=== PATIENT | female | born 1935 | race Caucasian/White ===

== ENCOUNTER 2016-11-12 10:15 | Day surgery (SDC) | payer OTHER ==
[~2016-11-12] VITALS: Ht 158.8 cm; Wt 79.4 kg
[~2016-11-12 10:15] MED LIST: ARMOUR THYROID30 MG PO; ASPIRIN325 MG PO; Arthrotec 50 PO; Aspirin E.C. PO; BACTRIM DS PO; Colace PO; DAILY VITAMIN1 EAC8 PO; ECOTRIN325 MG PO; EFFEXOR XR75 MG PO; EFFEXOR37.5 MG PO; EFFEXOR75 MG PO; ENDUR-ACIN500 MG PO; FLONASE16 G1 BOTH NARES; Flexeril PO; IMITREX100 MG PO; LEVO-T75 MCG PO; LIPITOR10 MG PO; MIACALCIN200 INTUNI SC; MOTRIN600 MG PO; Milk Of Magnesia,MOM PO; OMEGA 3 1,0001 EACH PO; OMEGA-31000 M1 PO; OMEPRAZOLE40 M1 PO; OXYCONTIN30 MG PO; OXYCONTIN40 MG PO; PERCOCET 5/31 TABLET PO; PHENTERMINE H37.5 MG PO; PROBIOTIC1 EAC1 PO; PROTONIX40 MG PO; Percocet 5/325,Endoc PO; PriLOSEC PO; SKELAXIN800 MG PO; SLO-NIACIN500 MG PO; TOPAMAX25 MG PO; TOPIRAMATE25 MG PO; Thyroid PO; ZANTAC150 MG PO
== END 2016-11-12 12:55 | disposition home or self-care (01) ==
LOC: PAIN 10:15 → SDC 11:00 → PAIN 11:00
PROC: 3E0S33Z Introduction of Anti-inflammatory into Epidural Space, Percutaneous Approach (ICD-10-PCS; principal; 2016-11-12)
DX: M50.123 Cervical disc disorder at C6-C7 level with radiculopathy (principal); F41.9 Anxiety disorder, unspecified; M75.51 Bursitis of right shoulder; M25.511 Pain in right shoulder; Z87.891 Personal history of nicotine dependence; E03.9 Hypothyroidism, unspecified; M81.0 Age-related osteoporosis without current pathological fracture; Z88.8 Allergy status to other drugs, medicaments and biological substances
CPT/HCPCS: J1030; J2250; J3010

== ENCOUNTER 2017-06-23 10:30 | Day surgery (SDC) | payer OTHER ==
[~2017-06-23] VITALS: Ht 157.5 cm; Wt 76.2 kg
[2017-06-23] MEDS ORDERED: [UNRECOGNIZED DRUG - OTHER] (11:09)
[2017-06-23] MEDS ORDERED: OCUVITE TABLET1 EACH PO (11:10)
== END 2017-06-23 12:30 | disposition home or self-care (01) ==
LOC: PAIN 10:30 → SDC 11:30 → PAIN 12:30
PROC: 015B3ZZ Destruction of Lumbar Nerve, Percutaneous Approach (ICD-10-PCS; principal; 2017-06-23)
DX: M47.816 Spondylosis without myelopathy or radiculopathy, lumbar region (principal); Z88.8 Allergy status to other drugs, medicaments and biological substances
CPT/HCPCS: J1030; J3010; S0020

== ENCOUNTER 2017-07-01 07:53 | Day surgery (SDC) | payer OTHER ==
[~2017-07-01] VITALS: Ht 157.5 cm; Wt 76.2 kg
[~2017-07-01 07:53] MED LIST changes: +OCUVITE TABLET1 EACH PO; +[UNRECOGNIZED DRUG - OTHER]
== END 2017-07-01 09:52 | disposition home or self-care (01) ==
LOC: PAIN 07:53 → SDC 08:30 → PAIN 09:52
DX: M12.88 Other specific arthropathies, not elsewhere classified, other specified site (principal); M19.90 Unspecified osteoarthritis, unspecified site; E03.9 Hypothyroidism, unspecified; E78.5 Hyperlipidemia, unspecified; M81.0 Age-related osteoporosis without current pathological fracture; F32.9 Major depressive disorder, single episode, unspecified; Z87.891 Personal history of nicotine dependence
CPT/HCPCS: J1030; J3010; S0020

== ENCOUNTER 2017-11-09 22:00 | Inpatient (IN) | payer OTHER ==
[~2017-11-09] VITALS: Ht 157.5 cm; Wt 84.1 kg
[2017-11-10 05:53] VITALS: BP 137/89
[2017-11-10 09:54] LABS: MCV 92.9 FL (83-99)
[2017-11-10 09:59] LABS: HEMOGLOBIN 9.6 G/DL (11.9-15.5)
[2017-11-10 12:20] VITALS: BP 153/70
[2017-11-10 16:55] VITALS: BP 92/55
[2017-11-10 21:22] VITALS: BP 94/53
[2017-11-10 21:54] VITALS: BP 128/68
[2017-11-11 01:27] VITALS: BP 113/59
[2017-11-11 04:17] VITALS: BP 107/50
[2017-11-11 07:35] VITALS: BP 100/59
[2017-11-11 09:15] LABS: HEMATOCRIT 26.4 % (36.0-46.0); HEMOGLOBIN 8.7 G/DL (11.9-15.5)
[2017-11-11 09:42] LABS: CHLORIDE 107 MEQ/L (99-109); CREATININE 0.9 MG/DL (0.6-1.3); GFR ESTIMATE (CALCULATED) > 59 mL/min/; GLUCOSE 105 mg/dL (70-99); POTASSIUM 3.7 MEQ/L (3.7-5.4); SODIUM 139 MEQ/L (136-147); UREA NITROGEN (BUN) 15 mg/dL (9-23)
[2017-11-11] MEDS ORDERED: SENNA PLUS TAB1 EACH PO (10:42)
[2017-11-11] MEDS ORDERED: ELIQUIS2.5 MG PO (10:42)
[2017-11-11] MEDS ORDERED: OXYCODONE HCL5 MG PO (10:42)
[2017-11-11 12:12] VITALS: BP 117/56
[2017-11-11 15:55] VITALS: BP 104/52
[2017-11-11 23:53] VITALS: BP 97/53
[2017-11-12 08:04] VITALS: BP 122/59
== END 2017-11-12 15:01 | disposition home health service (06) | DRG 470 ==
LOC: ENRESERV 22:00 → 2SOUTH 11-10 05:38 → ENRESERV 11-10 09:20 → 3EAST 11-10 11:02 → 2SOUTH 11-10 11:56 → 3EAST 11-12 15:01
PROVIDERS: Orthopaedic Surgery
PROC: 0SR904A Replacement of Right Hip Joint with Ceramic on Polyethylene Synthetic Substitute, Uncemented, Open Approach (ICD-10-PCS; principal; 2017-11-10)
DX: M16.11 Unilateral primary osteoarthritis, right hip (principal); K21.9 Gastro-esophageal reflux disease without esophagitis; E03.9 Hypothyroidism, unspecified; E78.5 Hyperlipidemia, unspecified; G25.81 Restless legs syndrome; G89.29 Other chronic pain; I95.9 Hypotension, unspecified; D50.9 Iron deficiency anemia, unspecified
CPT/HCPCS: 80048; 85014; 85018; A6214; J0690; J1100; J1885; J2405; J3010; J7050; J7120; S0020

== ENCOUNTER 2017-12-09 16:23 | Emergency (ER) | payer OTHER ==
[~2017-12-09] VITALS: Ht 157.5 cm; Wt 77.2 kg
[~2017-12-09 16:23] MED LIST changes: +ELIQUIS2.5 MG PO; +OXYCODONE HCL5 MG PO; +SENNA PLUS TAB1 EACH PO
[2017-12-09] MEDS ORDERED: PERCOCET 5/31 TABLET PO (19:18)
[2017-12-09 19:31] VITALS: BP 144/77
== END 2017-12-09 19:31 | disposition home or self-care (01) ==
LOC: EME 16:23
DX: G89.18 Other acute postprocedural pain (principal); S72.111A Displaced fracture of greater trochanter of right femur, initial encounter for closed fracture; X50.9XXA Other and unspecified overexertion or strenuous movements or postures, initial encounter; Y93.89 Activity, other specified; Z96.641 Presence of right artificial hip joint; E78.5 Hyperlipidemia, unspecified; E03.9 Hypothyroidism, unspecified; K21.9 Gastro-esophageal reflux disease without esophagitis; R56.9 Unspecified convulsions; F32.9 Major depressive disorder, single episode, unspecified; Z96.653 Presence of artificial knee joint, bilateral; Z90.49 Acquired absence of other specified parts of digestive tract
CPT/HCPCS: 73502; 99281; 99284; J1885

== ENCOUNTER 2017-12-24 11:28 | Inpatient (IN) | payer OTHER ==
[~2017-12-24] VITALS: Ht 157.5 cm; Wt 96.8 kg
[2017-12-25] MEDS ORDERED: PROTONIX20 MG PO (07:24)
[2017-12-25 07:30] LABS: HEMATOCRIT 29.3 % (36.0-46.0); HEMOGLOBIN 9.5 G/DL (11.9-15.5); MCH 29.1 PG (29.0-34.0); MCHC 32.4 G/DL (30.0-36.0); MCV 89.9 FL (83-99); PLATELET COUNT 237 K/uL (156-360); RBC DIS.WIDTH-CV 13.1 % (11.8-14.6); RBC DIS.WIDTH-SD 43.1 % (39-53); RED BLOOD COUNT 3.26 M/uL (3.80-5.20); WHITE BLOOD COUNT 6.5 K/uL (4.1-10.2)
[2017-12-25 07:47] VITALS: BP 150/81
[2017-12-25 07:53] LABS: ALKALINE PHOSPHATASE 99 IU/L (3-129); ALT (GPT) 8 IU/L (3-49); AST (GOT) 17 IU/L (2-34); CHLORIDE 102 MEQ/L (99-109); CREATININE 0.8 MG/DL (0.6-1.3); GFR ESTIMATE (CALCULATED) > 59 mL/min/; GLUCOSE 88 mg/dL (70-99); POTASSIUM 3.7 MEQ/L (3.7-5.4); SODIUM 139 MEQ/L (136-147); TOTAL BILIRUBIN 0.3 MG/DL (0.0-1.0); TOTAL PROTEIN 6.6 G/DL (6.4-8.3); UREA NITROGEN (BUN) 8 mg/dL (9-23)
[2017-12-25 12:38] LABS: HEMATOCRIT 26.8 % (36.0-46.0); HEMOGLOBIN 8.9 G/DL (11.9-15.5); MCV 89.9 FL (83-99)
[2017-12-25 15:54] VITALS: BP 167/67
[2017-12-25 17:52] LABS: MCV 89.7 FL (83-99)
[2017-12-25 20:14] VITALS: BP 135/66
[2017-12-25 23:57] VITALS: BP 139/91
[2017-12-26 04:14] VITALS: BP 126/60
[2017-12-26 07:07] LABS: CHLORIDE 106 MEQ/L (99-109); CREATININE 0.8 MG/DL (0.6-1.3); GFR ESTIMATE (CALCULATED) > 59 mL/min/; GLUCOSE 100 mg/dL (70-99); POTASSIUM 3.7 MEQ/L (3.7-5.4); SODIUM 140 MEQ/L (136-147); UREA NITROGEN (BUN) 7 mg/dL (9-23)
[2017-12-26 07:47] VITALS: BP 122/58
[2017-12-26 11:16] VITALS: BP 109/58
[2017-12-26 16:26] VITALS: BP 141/63
[2017-12-27 00:12] VITALS: BP 149/65
[2017-12-27 08:00] VITALS: BP 100/58
[2017-12-27 16:08] VITALS: BP 108/50
[2017-12-27 23:54] VITALS: BP 110/53
[2017-12-28 08:11] VITALS: BP 118/54
[2017-12-28 16:43] VITALS: BP 118/58
[2017-12-28 23:58] VITALS: BP 126/58
[2017-12-29] MEDS ORDERED: OXYCODONE HCL5 MG PO (08:23)
[2017-12-29] MEDS ORDERED: ELIQUIS2.5 MG PO (08:23)
[2017-12-29 08:47] VITALS: BP 105/50
== END 2017-12-29 17:42 | disposition home health service (06) | DRG 467 ==
LOC: 2SOUTH 11:28 → ENRESERV 22:10 → 2SOUTH 12-25 06:33 → ENRESERV 12-25 12:06 → 2SOUTH 12-25 14:08 → 3EAST 12-25 14:51 → 2SOUTH 12-25 14:53 → 3EAST 12-29 17:42
PROVIDERS: Nurse Anesthetist, Certified Registered; Orthopaedic Surgery
DX: S72.111A Displaced fracture of greater trochanter of right femur, initial encounter for closed fracture (principal); M97.9XXA Periprosthetic fracture around unspecified internal prosthetic joint, initial encounter; Z96.641 Presence of right artificial hip joint; M16.11 Unilateral primary osteoarthritis, right hip; D62 Acute posthemorrhagic anemia
CPT/HCPCS: 71045; 73502; 76000; 80048; 80053; 85014; 85018; 85027; 86850; 86900; 86901; 86920; 87070; 87075; 87205; 93971; 94799; J0330; J0690; J1100; J1170; J1885; J2405; J2710; J3010; J7050; J7120; J7643; P9016; S0020